=== PATIENT | female | born 1995 | race Hispanic/Latino ===

== ENCOUNTER → 2020-02-22 | Emergency (ER) | payer OTHER ==
[~2020-02-22] VITALS: Ht 154.9 cm; Wt 74.8 kg
[~2020-02-22] MED LIST: ZOLMITRIPTAN
--- OUTSIDE RECORDS SUMMARY | 2020-02-22 09:04 | XMS REPORT | Summary of Care ---
Author Author [facility] Organization [facility] Address Unknown Phone Unavailable Care Team Providers Care Brickmason Apprentice Name Role Phone Lila Mae MD PCP Balbir Joy 52 Reason for Visit * Reason Comments Urgent Care Follow-up Diarrhea Fever Hematuria Encounter Details Care Team Description Date Type Department Lila Mae MD [address] [facility] [address] [place] [address] Urgent Care Follow-up; Diarrhea; Fever; Hematuria 07/31/2019 Office Visit [facility] General Internal Medicine [address] [facility]; [address] [place] [address] Allergies No Known Allergiesdocumented as of this encounter (statuses as of 08/02/2019) Medications End Date Status Medication Sig Dispensed Refills Start Date Active MedroxyPROGESTERone Inject into 0 Acetate (DEPO-PROVERA IM) the muscle. Active Terbinafine 1 % Apply 1 3 Tube 3 GELIndications: Skin rash application 7 topically 3 times daily. Active fluticasone (FLONASE) 50 1 Barton by 1 Bottle 2 MCG/ACT nasal spray Each Nostril 7 route daily. Active terbinafine (LAMISIL) 1 % Apply 1 15 g 3 cream application 8 topically two times daily. Active Dexlansoprazole Take 60 mg by 30 Cap 5 (DEXILANT) 60 MG mouth daily. 9 CPDRIndications: Gastroesophageal reflux disease, esophagitis presence not specified, Abdominal bloating, Heartburn, Dyspepsia 07/31/2019 Discontinued sumatriptan (IMITREX) 25 Take 25 mg by 0 MG tablet mouth once as needed for Migraine. 07/31/2019 Discontinued esomeprazole (NEXIUM) 40 Take 1 Cap by 30 Cap 3 08/04/201 MG capsuleIndications: mouth every 7 Gastroesophageal reflux morning disease, esophagitis (before presence not specified breakfast). 07/31/2019 sumatriptan (IMITREX) 25 Take 1 Tab by 10 Tab 1 MG tabletIndications: mouth once as 9 Other migraine without needed for status migrainosus, not Migraine for intractable up to 1 dose. documented as of this encounter (statuses as of 08/02/2019) Active Problems No known active problemsdocumented as of this encounter (statuses as of 08/02/2019) Immunizations Name Administration Dates Next Due Influenza (whole) 11/10/2016 documented as of this encounter Social History Date Tobacco Use Types Packs/Day Years Used Never Smoker Smokeless Tobacco: Never Used Drinks/Week oz/Week Comments Alcohol Use No Sex Assigned at Date Recorded Not on file Industry Job Start Date Occupation Not on file Not on file Not on file Travel End Travel History Travel Start No recent travel history available. documented as of this encounter Last Filed Vital Signs Reading Time Taken Comments Vital Sign 100/66 07/31/2019 3:37 PM CDT Blood Pressure 76 07/31/2019 3:37 PM CDT Pulse 36.9 C (98.4 F) 07/31/2019 3:37 PM CDT Temperature - - Respiratory Rate 98% 07/31/2019 3:37 PM CDT Oxygen Saturation - - Inhaled Oxygen Concentration 75.3 kg (166 lb) 07/31/2019 3:37 PM CDT Weight 154.9 cm (5' 1") 07/31/2019 3:37 PM CDT Height 31.37 07/31/2019 3:37 PM CDT Body Mass Index documented in this encounter Progress Notes * Lila Mae MD - 07/31/2019 3:20 PM CDT 07/31/2019 3:45 PM Patient arrived on time PCP:Lila Mae MD Established to [facility]: Last visit to PCP:10/2016 In the interim seen by:coiled tubing operator CHIEF COMPLAINT: Annual exam urgent care Diarrhea Fever hematuria HISTORY OF PRESENT ILLNESS: Antonette Ramos is a 23 y.o. 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 She ate burger at theater and next day got sick Had high fever yesterday and was taken to urgent care UA noted to have blood un urine Gets hot flash or feels feverish Had colonoscopy and EGD completed no positive bx Has irritable bowel syndrome REVIEW OF SYSTEMS: General: + fever/chills, + fatigue Ophthalmic: no blurry vision, no erythema ENT: No oral lesions or vocal changes Respiratory: + cough, shortness of breath, or wheezing Cardiovascular: no chest pain or dyspnea on exertion Gastrointestinal: + diarrhea, no constipation, no N/V Genitourinary: no dysuria, trouble voiding, or hematuria Musculoskeletal: no joint pains, no joint swelling Neurological: no numbness/tingling Dermatological: no skin rashes Psychological: no anxiety / depression HEALTH MAINTENANCE: Health Maintenance Topic Date Due TETANUS SHOT (ADULT) 2011 HIV SCREENING 2014 BMI FOLLOW UP PLAN 2014 CERVICAL CANCER SCREENING 3 YEAR FOLLOW UP 2017 FLU VACCINE > 6 MONTHS 06/21/2019 Up to date with eye and dental exam PAST MEDICAL HISTORY: Past Medical History: Diagnosis Date Epigastric abdominal pain Hemorrhoid Migraine PAST SURGICAL HISTORY: Past Surgical History: Procedure Laterality Date UNREMARKABLE FAMILY HISTORY: Family History Problem Relation Name Age of Onset Unremarkable Mother Unremarkable Brother SOCIAL HISTORY: Social History Socioeconomic History Marital status: Single Spouse name: Not on file Number of children: Not on file Years of education: Not on file Highest education level: Not on file Occupational History Occupation: student Social Needs Financial resource strain: Not on file Food insecurity: Worry: Not on file Inability: Not on file Transportation needs: Medical: Not on file Non-medical: Not on file Tobacco Use Smoking status: Never Smoker Smokeless tobacco: Never Used Substance and Sexual Activity Alcohol use: No Drug use: Not on file Sexual activity: Yes Partners: Female Lifestyle Physical activity: Days per week: Not on file Minutes per session: Not on file Stress: Not on file Relationships Social connections: Talks on phone: Not on file Gets together: Not on file Attends adventism service: Not on file Active member of club or organization: Not on file Attends meetings of clubs or organizations: Not on file Relationship status: Not on file Intimate partner violence: Fear of current or ex partner: Not on file Emotionally abused: Not on file Physically abused: Not on file Forced sexual activity: Not on file Other Topics Concerns: Not on file Social History Narrative Born in [place], [place] Lives with mom and grandmother LAST SCREENING DATES Colonoscopy : N/A Mammogram : N/A Pap Smear : N/A Bone Density Test : N/A HEALTH MAINTENANCE Last Dentist Vist : N/A Last Eye exam : N/A EXERCISE :N/A ACCIDENTS/TRAUMA Helmets with biking/skating n/a Smoke detectors: YES Handguns: NO Seatbelts: YES Drink and drive: NO Extreme Sports: NO GIFT MANAGER HISTORY: OB History 0 Para 0 Term 0 0 AB 0 Living 0 SAB 0 TAB 0 Ectopic 0 Multiple 0 Live Births ALLERGIES: No Known Allergies CURRENT MEDICATIONS: Current Outpatient Medications Medication Sig Dispense Refill Dexlansoprazole (DEXILANT) 60 MG CPDR Take 60 mg by mouth daily. (Patient no t taking: Reported on 07/31/2019) 30 Cap 5 esomeprazole (NEXIUM) 40 MG capsule Take 1 Cap by mouth every morning (befor e breakfast). (Patient not taking: Reported on 07/31/2019) 30 Cap 3 fluticasone (FLONASE) 50 MCG/ACT nasal spray 1 Barton by Each Nostril route d aily. (Patient not taking: Reported on 07/31/2019) 1 Bottle 2 MedroxyPROGESTERone Acetate (DEPO-PROVERA IM) Inject into the muscle. sumatriptan (IMITREX) 25 MG tablet Take 25 mg by mouth once as needed for Mi graine. terbinafine (LAMISIL) 1 % cream Apply 1 application topically two times abad y. (Patient not taking: Reported on 07/31/2019) 15 g 3 Terbinafine 1 % GEL Apply 1 application topically 3 times daily. (Patient no t taking: Reported on 07/31/2019) 3 Tube 3 No current facility-administered medications for this visit. MEDICAL DECISION MAKING: Lab Work: No results found for: HGBA1C Lab Results Component Value Date TSH 1.130 11/17/2017 Lab Results Component Value Date WBC 7.2 12/19/2018 HGB 13.2 12/19/2018 HCT 38.1 12/19/2018 PLT 216 12/19/2018 CHOL 209 (H) 11/17/2017 ALT 64 (H) 12/19/2018 AST 52 (H) 12/19/2018 NA 143 12/19/2018 K 4.1 12/19/2018 CL 105 12/19/2018 CREATININE 0.69 12/19/2018 BUN 7 12/19/2018 CO2 24 12/19/2018 TSH 1.130 11/17/2017 Lab Results Component Value Date CHOL 209 (H) 11/17/2017 CHOL 211 (H) 11/10/2016 LDLCALC 132 (H) 11/17/2017 LDLCALC 138 (H) 11/10/2016 TRIG 102 11/17/2017 TRIG 54 11/10/2016 Radiographs: Vitals: Blood pressure 100/66, pulse 76, temperature 98.4 F (36.9 C), temperature so urce Oral, height 5' 1" (1.549 m), weight 166 lb (75.3 kg), SpO2 98 %. Body mass index is 31.37 kg/m. PHYSICAL EXAM: General: Alert, oriented, no acute distress HEENT: oropharnyx injected- no lesions,+ post nasal drip, Neck: Supple, no lymphadenopathy, no masses, no thyromegaly Chest: Clear to auscultation bilaterally, no wheezing CV: Normal S1, S2, no murmurs Abdomen: soft, no organomegaly, nontender, BS + Back: No kyphosis, no CVT, No paraspinal muscle stiffness Ext: No edema, palpable pulses Skin: + tinea like rash on breast and extremities normal rectal exam No ext hemorrhoids noted on exam ASSESSMENT AND PLAN: Antonette was seen today for cough, uri and pharyngitis. Diagnoses and all orders for this visit: Annual physical exam - CBC and differential - Comprehensive metabolic panel - Lipid panel - TSH REFLEX TO FREE T4 Skin rash - Terbinafine 1 % GEL; Apply 1 application topically 3 times daily. - AMB REFERRAL TO DERMATOLOGY [facility] Sore throat - amoxicillin-clavulanate (AUGMENTIN) 875-125 MG per tablet; Take 1 Tab by m outh two times daily for 10 days. - CA OFFICE OUTPATIENT VISIT 15 MINUTES Other orders - fluticasone (FLONASE) 50 MCG/ACT nasal spray; 1 Barton by Each Nostril rout e daily. Lila Mae MD Follow up in 1 year Significant other problem: CC: sore throat HPI: Duration: 1 week Worsening of Sign and Symptoms: yes Sick Contacts:yes Fever:yes Earache: mld Sinus Headache: yes Runny nose: some Sore Throat:yes Cough: mild Productive of: none OTC meds used: no Myalgias: some Chest pain: no N/V/D: no Sneezing: no Watery eyes:no Smoking: no ROS: CONSTITUTIONAL: Denies, diaphoresis, weakness, fatigue, weight loss, weight gain ALLERGIES: Denies: hay fever, angioedema EYES: Denies: blurry vision, decreased vision, loss of vision, eye pain, diplopi a, photophobia, discharge ENT: Denies: epistaxis, tinnitus, hearing loss CARDIOVASCULAR: Denies: chest pain, dyspnea on exertion, orthopnea, paroxysmal n octurnal dyspnea, edema, palpitations RESPIRATORY: Denies: hemoptysis, shortness of breath, pleuritic chest pain, whee zing GI: Denies: abdominal pain, flank pain, nausea, vomiting, diarrhea, constipation , black stool, blood in stool SKIN: Denies: + rash, itching, no hives PMH: Past Medical History: Diagnosis Date Epigastric abdominal pain Hemorrhoid Migraine : PSH: Past Surgical History: Procedure Laterality Date UNREMARKABLE Social History: Social History Socioeconomic History Marital status: Single Spouse name: Not on file Number of children: Not on file Years of education: Not on file Highest education level: Not on file Occupational History Occupation: student Social Needs Financial resource strain: Not on file Food insecurity: Worry: Not on file Inability: Not on file Transportation needs: Medical: Not on file Non-medical: Not on file Tobacco Use Smoking status: Never Smoker Smokeless tobacco: Never Used Substance and Sexual Activity Alcohol use: No Drug use: Not on file Sexual activity: Yes Partners: Female Lifestyle Physical activity: Days per week: Not on file Minutes per session: Not on file Stress: Not on file Relationships Social connections: Talks on phone: Not on file Gets together: Not on file Attends adventism service: Not on file Active member of club or organization: Not on file Attends meetings of clubs or organizations: Not on file Relationship status: Not on file Intimate partner violence: Fear of current or ex partner: Not on file Emotionally abused: Not on file Physically abused: Not on file Forced sexual activity: Not on file Other Topics Concerns: Not on file Social History Narrative Born in [place], [place] Lives with mom and grandmother LAST SCREENING DATES Colonoscopy : N/A Mammogram : N/A Pap Smear : N/A Bone Density Test : N/A HEALTH MAINTENANCE Last Dentist Vist : N/A Last Eye exam : N/A EXERCISE :N/A ACCIDENTS/TRAUMA Helmets with biking/skating n/a Smoke detectors: YES Handguns: NO Seatbelts: YES Drink and drive: NO Extreme Sports: NO Vitals: Blood pressure 100/66, pulse 76, temperature 98.4 F (36.9 C), temperature so urce Oral, height 5' 1" (1.549 m), weight 166 lb (75.3 kg), SpO2 98 %. Physical examination: General appearance - alert, well appearing, and in no distress Mental status - alert, oriented to person, place, and time Eyes - pupils equal and reactive, extraocular eye movements intact Ears - bilateral TM's and external ear canals normal Nose - normal and patent, no erythema, no discharge Mouth - mucous membranes moist, pharynx injected, + PND Neck - supple, no significant adenopathy Chest - clear to auscultation, no wheezes, rales or rhonchi, symmetric air entry Abdomen: lower abdominal pain Hyperactive BS Assessment and Plan: Antonette was seen today for cough, uri and pharyngitis. Diagnoses and all orders for this visit: Annual physical exam - CBC W/AUTO DIFF WITH PLATELETS - COMPREHENSIVE METABOLIC PANEL - LIPID PANEL - TSH REFLEX TO FREE T4 - HEMOGLOBIN A1C Diarrhea, unspecified type - HEPATITIS PANEL - CULTURE, STOOL - CLOSTRIDIUM DIFFICILE TOXINS A & B - IFOBT OCCULT BLOOD, FECAL IMMUNOASSAY [facility] SCRN Hematuria, unspecified type - URINALYSIS, COMPLETE W/REFLEX TO CULTURE Other migraine without status migrainosus, not intractable - sumatriptan (IMITREX) 25 MG tablet; Take 1 Tab by mouth once as needed for Migraine for up to 1 dose. Other orders - HEPATITIS A ANTIBODY, IGM Lila Mae MD documented in this encounter Plan of Treatment Care Team Description Date Type Specialty Lila Mae MD [address] [id number] 08/08/2019 Office Visit General Internal Medicine Order Schedule Name Type Priority Associated Diagnoses Ordered: 07/31/2019 CULTURE, STOOL Microbiology Routine Diarrhea, unspecified type Ordered: 07/31/2019 CLOSTRIDIUM DIFFICILE Microbiology Routine Diarrhea, unspecified TOXINS A & B type Ordered: 07/31/2019 IFOBT OCCULT BLOOD, FECAL Lab Routine Diarrhea, unspecified IMMUNOASSAY [facility] SCRN type Health Maintenance Due Date Last Done Comments TETANUS SHOT (ADULT) 2011 BMI FOLLOW UP PLAN 2014 HIV SCREENING 2014 CERVICAL CANCER SCREENING 2017 3 YEAR FOLLOW UP FLU VACCINE > 6 MONTHS 06/21/2019 11/17/2017 (Declined), 08/02/2017 (Declined), 11/10/2016 documented as of this encounter Procedures Comments Procedure Name Priority Date/Time Associated Diagnosis TSH REFLEX TO FREE T4 Routine 07/31/2019 Annual physical exam 4:37 PM CDT URINALYSIS, COMPLETE Routine 07/31/2019 Hematuria, unspecified W/REFLEX TO CULTURE 4:37 PM CDT type HEPATITIS PANEL Routine 07/31/2019 Diarrhea, unspecified 4:37 PM CDT type HEPATITIS A ANTIBODY, IGM Routine 07/31/2019 4:37 PM CDT CBC W/AUTO DIFF WITH Routine 07/31/2019 Annual physical exam PLATELETS 4:37 PM CDT HEMOGLOBIN A1C Routine 07/31/2019 Annual physical exam 4:37 PM CDT LIPID PANEL Routine 07/31/2019 Annual physical exam 4:37 PM CDT COMPREHENSIVE METABOLIC Routine 07/31/2019 Annual physical exam PANEL 4:37 PM CDT documented in this encounter Results * HEPATITIS A ANTIBODY, IGM (07/31/2019 4:37 PM CDT) [facility] HEP A IGM NON-REACTIVE NON-REACTIVE CPL ANTIBODY Comment: Unless Otherwise Indicated, All Testing Performed At: [facility], [address] [place] [address] Advertising Account Executive: Milton Dunn M.D. CLIA Number [id number]. [id number] Specimen Performing Organization Address [facility] Medical Centercode Phone Number [address] [address] * URINALYSIS, COMPLETE W/REFLEX TO CULTURE (07/31/2019 4:37 PM CDT) [facility] COLOR UA NIKOLAS (A) YELLOW-STRAW CPL CLARITY UA TURBID (A) CLEAR CPL SPECIFIC 1.025 1.005 - 1.035 CPL GRAVITY UA LEUKOCYTE NEGATIVE NEGATIVE CPL ESTERASE UA NITRITE UA NEGATIVE NEGATIVE CPL PH UA 5.0 5.0 - 9.0 CPL PROTEIN UA NEGATIVE NEGATIVE CPL GLUCOSE UA NEGATIVE NEGATIVE CPL KETONES UA NEGATIVE NEGATIVE CPL UROBILINOGEN UA <2.0 <=2.0 MG/DL CPL BILIRUBIN UA NEGATIVE NEGATIVE CPL OCCULT BLOOD UA 1+ (A) NEGATIVE CPL WBC UA 0-5 0 - 5 /HPF CPL RBC UA 15-20 (A) 0 - 5 /HPF CPL EPITHELIAL 0-5 0 - 10 /HPF CPL CELLS BACTERIA 1+ (A) NEGATIVE CPL CRYSTALS (NOTE) NONE /HPF CPL Comment: 1+ AMORPHOUS Unless Otherwise Indicated, All Testing Performed At: [facility], [address] [place] [address] Advertising Account Executive: Milton Dunn M.D. CLIA Number [id number]. [id number] Specimen Performing Organization Address [facility]/Zipcode Phone Number [address] [address] * HEPATITIS PANEL (07/31/2019 4:37 PM CDT) [facility] HEP A TOTAL REACTIVE (A) NON-REACTIVE CPL ANTIBODY HEP BS ANTIGEN NON-REACTIVE NON-REACTIVE CPL HEP B CORE NON-REACTIVE NON-REACTIVE CPL TOTAL ANTIBODY HEP BS ANTIBODY EQUIVOCAL (A) NON-REACTIVE CPL HEP C ANTIBODY NON-REACTIVE NON-REACTIVE CPL HCV INDEX 0.17 SEE BELOW CPL Comment: $$$$ INTERPRETIVE INFORMATION $$$$ HCV INDEX INTERPRETATION <0.80 NEGATIVE 0. 80-0.99 EQUIVOCAL 1. 00-4.99 WEAK POSITIVE >=5.00 STRONG POSITIVE Note: Methodology is [employer] Shutdown Coordinator CMIA technology.A repeatedly reactive result is consistent with current HCV infection, past HCV infection that has resolved, or biologic false positivity for HCV antibody. CDC recommends HCV RNA for a new diagnosis of current HCV infection. (See https://www.cdc.gov/hepatitis/ hcv/profresourcesc.htm) INTERPRETATION (NOTE) CPL HEPATITIS A Comment: Hepatitis A serology consistent with past exposure or previous vaccination to hepatitis A virus.No evidence of current acute hepatitis A infection. INTERPRETATION (NOTE) CPL HEPATITIS B Comment: Equivocal hepatitis B surface antibody with non-reactive hepatitis B surface antigen and hepatitis B core total antibody. Hepatitis B serology shows no evidence of past exposure to or current infection with hepatitis B virus.This may represent early response to hepatitis B vaccination or remote prior vaccination.The immune status of the individual should be further assessed by considering other factors, such as clinical status, follow-up testing, associated risk factors, and the use of additional diagnostic information. INTERPRETATION (NOTE) CPL HEPATITIS C Comment: Hepatitis C serology shows no evidence of exposure to hepatitis C virus at this time.It can take up to 12 months after exposure to the hepatitis C virus for antibodies to become detectable in the blood in certain patients. Unless Otherwise Indicated, All Testing Performed At: [facility], [address] [place] [address] Advertising Account Executive: Milton Dunn M.D. [place] Number [id number]. [id number] Specimen Performing Organization Address [facility] Centercode Phone Number [address] [address] * HEMOGLOBIN A1C (07/31/2019 4:37 PM CDT) HEMOGLOBIN A1C 5.1 4.2 - 5.6 % [facility] Comment: Unless Otherwise Indicated, All Testing Performed At: [place] [address] Advertising Account Executive: Milton Dunn M.D. [place] Number [id number]. [id number] Specimen Blood Performing Organization Address [facility] Centercode Phone Number [address] [address] * TSH REFLEX TO FREE T4 (07/31/2019 4:37 PM CDT) Pathologist [facility] THYROID 0.954 0.400 - 4.100 UIU/ML CPL STIMULATING Comment: HORMONE Unless Otherwise Indicated, All Testing Performed At: [facility], [address] [place] [address] Advertising Account Executive: Milton Dunn M.D. CLIA Number [id number]. [id number] Specimen Performing Organization Address [facility] Centercony Phone Number [address] [address] * LIPID PANEL (07/31/2019 4:37 PM CDT) Pathologist [facility] CHOLESTEROL 173 <200 MG/DL CPL TRIGLYCERIDES 127 <150 MG/DL CPL HDL CHOLESTEROL 46 >39 MG/DL CPL LDL CHOLESTEROL 102 (H) <100 MG/DL CPL CALCULATED LDL/HDL RATIO, 2.21 <3.22 RATIO CPL SERUM Comment: Unless Otherwise Indicated, All Testing Performed At: [facility], [address] [place] [address] Advertising Account Executive: Milton Dunn M.D. CLIA Number [id number]. [id number] Specimen Blood Performing Organization Address [facility] Centercony Phone Number [address] [phone] * COMPREHENSIVE METABOLIC PANEL (07/31/2019 4:37 PM CDT) Pathologist [facility] GLUCOSE 80 70 - 99 MG/DL CPL BLOOD UREA 8 6 - 20 MG/DL CPL NITROGEN CREATININE 0.84 0.60 - 1.30 MG/DL CPL EGFR AA 114 >60 ML/MIN/1.73 CPL EGFR 99 >60 ML/MIN/1.73 CPL BUN/CREAT RATIO 10 6 - 28 RATIO CPL SODIUM 139 133 - 146 MEQ/L CPL POTASSIUM 3.8 3.5 - 5.4 MEQ/L CPL CHLORIDE 100 95 - 107 MEQ/L CPL CO2 23 19 - 31 MEQ/L CPL CALCIUM 9.1 8.5 - 10.5 MG/DL CPL PROTEIN TOTAL 7.5 6.1 - 8.3 G/DL CPL ALBUMIN 4.4 3.5 - 5.2 G/DL CPL GLOBULINS, 3.1 1.9 - 3.7 G/DL CPL SERUM, TOTAL A/G RATIO 1.4 1.0 - 2.6 RATIO CPL BILIRUBIN TOTAL 0.3 <=1.2 MG/DL CPL ALKALINE 42 38 - 117 U/L CPL PHOSPHATASE AST (SGOT) 22 9 - 40 U/L CPL ALT (SGPT) 14 5 - 40 U/L CPL Comment: Unless Otherwise Indicated, All Testing Performed At: [facility], [address] [place] [address] Advertising Account Executive: Milton Dunn M.D. CLIA Number [id number]. [id number] Specimen Blood Performing Organization Address [facility] Center[facility]y Phone Number [address] [address] * CBC W/AUTO DIFF WITH PLATELETS (07/31/2019 4:37 PM CDT) WHITE BLOOD 4.9 4.0 - 11.0 K/UL CPL CELL COUNT RED BLOOD CELL 4.77 3.80 - 5.10 M/UL CPL COUNT HEMOGLOBIN 14.2 11.5 - 15.5 G/DL CPL HEMATOCRIT 42.3 34.0 - 45.0 % CPL MEAN 88.7 80.0 - 100.0 fL CPL CORPUSCULAR VOLUME MEAN 29.8 27.0 - 34.0 PG CPL CORPUSCULAR HEMOGLOBIN MEAN 33.6 32.0 - 35.5 G/DL CPL CORPUSCULAR HEMOGLOBIN CONC RED CELL 12.3 11.0 - 15.0 % CPL DISTRIBUTION WIDTH NEUTROPHILS % 62.1 40.0 - 74.0 % CPL LYMPHOCYTES % 26.5 19.0 - 48.0 % CPL MONOCYTES % 10.0 4.0 - 13.0 % CPL EOSINOPHILS % 0.8 0.0 - 7.0 % CPL BASOPHILS % 0.6 0.0 - 2.0 % CPL PLATELET COUNT 208 130 - 400 K/UL CPL Comment: Unless Otherwise Indicated, All Testing Performed At: [facility], [address] [place] [id number] Advertising Account Executive: Milton Dunn M.D. CLIA Number [id number]. [id number] Specimen Blood Performing Organization Address City/State/Zipcode Phone Number [facility] [address] [place] [address] documented in this encounter Visit Diagnoses Diagnosis Annual physical exam - Primary Routine general medical examination at a health care facility Diarrhea, unspecified type Hematuria, unspecified type Other migraine without status migrainosus, not intractable documented in this encounter Insurance Type Payer Benefit Subscriber ID Effective Phone Address Plan / Dates Group EPO [employer] EPO xxxxxxxxx 2015-P [facility] resent [id number] [employer]EE [employer] [place] [place] [address] documented as of this encounter
--- OUTSIDE RECORDS SUMMARY | 2020-02-22 09:04 | XMS REPORT ---
Author Author [facility] Address Unknown Phone Unavailable Care Team Providers Care Corporate Consultant Name Role Phone MILLICENT PEREZ Unavailable Unavailable Problems This patient has no known problems. Allergies, Adverse Reactions, Alerts This patient has no known allergies or adverse reactions. Medications This patient has no known medications. Results Test Description Test Time Test Comments Text Results Atomic Results Result Comments TISSUE EXAM 2018-12-29 14:02:00 Surgical Pathology Report Case: [id number] Authorizing Provider: Millicent Perez, Collected: 12/28/2018 1150 MD Ordering Location: [facility] ENDOSCOPY Received: 12/28/2018 1546 SERVICES Pathologist: Linda Robles MD Specimens: A) - Duodenum, bx r/o celiac B) - Stomach, Antrum, bx gastritis C) - Colon Biopsy, Random, right colon diarrhea r/o colitis D) - Colon Biopsy, Random, left colon diarrhea r/o colitis A. DUODENUM, BIOPSY: - DUODENAL MUCOSA WITH PRESERVED VILLOUS ARCHITECTURE - NO SIGNIFICANT HISTOPATHOLOGICAL CHANGE B. STOMACH, ANTRUM BIOPSY: - GASTRIC ANTRUM TYPE MUCOSA WITH REACTIVE GASTROPATHY - WARTHIN STARRY STAIN NEGATIVE FOR H. PYLORI-LIKE ORGANISMS C. RIGHT COLON, BIOPSY: - COLONIC MUCOSA WITH NO SIGNIFICANT HISTOPATHOLOGICAL CHANGE D. LEFT COLON, BIOPSY: - COLONIC MUCOSA WITH NO SIGNIFICANT HISTOPATHOLOGICAL CHANGE Signing Pathologist Direct Phone Line: [phone] signed by Linda Robles MD on 12/29/2018 at 2:02 PMNo features of microscopic colitis noted.Endoscopic report reviewed./[id number] bloating, chronic diarrhea, fecal urgency lower abdominal pain, gastroesophageal reflux disease, heartburn, dyspepsia, rule out colitis, rule out celiacA. Duodenum; B. Stomach antrum biopsy; C. Random colon biopsy; D. Left colon biopsyThe specimens are received in four containers of formalin all labeled with the patient's information.Part A labeled "duodenum biopsy" consists of two fragments of gaxiola tissue measuring 0.1 and 0.2 cm, submitted entirely A1. Part B labeled "stomach antrum biopsy" consists of a 0.3 cm fragment of gaxiola tissue, submitted B1.Part C labeled "random right colon biopsy" consists of two fragments of gaxiola tissue measuring 0.2 and 0.3 cm, submitted C1. Part D labeled "randm colon biopsy" consists of a 0.3 cm fragment of gaxiola tissue submitted D1. CG/pl Performed The interpretation of this case included the use of immunohistochemistry or special stains. Immunohistochemistry technical testing was performed at [facility], Pathology Laboratory where it was developed and its performance characteristics were determined. It has not been cleared or approved by the [place]. Food and Drug Administration. The FDA has determined that such clearance or approval is not necessary. The test is used for clinical purposes. It should not be regarded as investigational or for research. This laboratory is certified under the Clinical Laboratory Improvement Amendments of 1988 (CLIA-88) as qualified to perform high complexity clinical laboratory testing.
== END | disposition home or self-care (01) ==
LOC: ER 09:02
DX: R19.7 Diarrhea, unspecified (principal); R42 Dizziness and giddiness; R11.0 Nausea
CPT/HCPCS: 36415; 82948; 99282